=== PATIENT | female | born 1955 | race Caucasian/White ===

== ENCOUNTER 2021-07-23 03:55 | Outpatient (CLI) | payer MEDICARE | END 2021-07-23 03:56 | disposition critical access hospital (66) | LOC: EMS 03:55 | DX: R42 Dizziness and giddiness (principal) | CPT/HCPCS: A0425; A0429 ==

== ENCOUNTER 2021-07-23 04:06 | Observation (INO) | payer MEDICARE, OTHER ==
[2021-07-23] MEDS ORDERED: MECLIZINE 12.5 MG TABLET PO STA (04:32)
--- NOTE | 2021-07-23 04:36 | ED Physician Documentation ---
PD HPI HEENT - Stated complaint Stated Complaint: STROKE LIKE SYMPTOMS - History obtained from History obtained from: Patient, EMS - History of Present Illness Timing - onset: Yesterday (onset about 3 pm while sitting on sofa, felt abrupt dizziness and listing to the side. She felt unable to maintain upright posture/ off balance. Improved after resting with eyes closed. Later got up to go to bathroom and felt off balance. had to help her get to bathroom. No visual change.) Timing - details: Abrupt onset, Now resolved (feeling improved enroute here. Able to talk clearly. No focal weakness. no visual change. Still feeling of nausea and mild vertigo when sits up here in ER. Not much symptoms with side to side head movement.) Location: Other (denies congestion nor tinnitus.). No: Right ear, Left ear, Sinuses Associated symptoms: Other (denies fall/ head injury. She has nausea with movement and sitting up. Did have vomiting with it when worst earlier.). No: Fever, Congestion, Rhinorrhea, Headache Similar symptoms before: Has not had sx before Recently seen: Not recently seen Review of Systems Constitutional: denies: Fever, Chills Eyes: denies: Loss of vision, Decreased vision Ears: denies: Loss of hearing, Tinnitus/ringing Nose: denies: Rhinorrhea / runny nose, Congestion Throat: denies: Sore throat Respiratory: denies: Cough Musculoskeletal: denies: Neck pain, Back pain Neurologic: reports: Generalized weakness (felt like her legs would not hold her when tried walking to bathroom, but symmetrically and she was able to grab hold of her with both arms and converse with him.). denies: Focal weakness, Numbness, Near syncope, Altered mental status, Headache, Head injury PD PAST MEDICAL HISTORY - Past Medical History Cardiovascular: None Respiratory: None Neuro: None Endocrine/Autoimmune: Type 2 diabetes GI: None - Allergies Allergies/Adverse Reactions: Allergies Allergy/AdvReac Type Severity Reaction Status Date / Time No Known Drug Allergies Allergy Verified 07/23/21 04:33 - Social History Does the pt smoke?: No Does the pt drink ETOH?: No Does the pt have substance abuse?: No - Family History Family history: reports: Non contributory. denies: CVA - POLST POLST Status: Full Code PD ED PE NORMAL - Vitals Vital signs reviewed: Yes - General General: Alert and oriented X 3, No acute distress, Well developed/nourished - HEENT HEENT: Atraumatic, PERRL, EOMI (no nystagmus noted), Pharynx benign - Neck Neck: Supple, no meningeal sign, No adenopathy - Cardiac Cardiac: RRR, No murmur - Respiratory Respiratory: Clear bilaterally - Abdomen Abdomen: Soft, Non tender - Derm Derm: Normal color, Warm and dry - Extremities Extremities: No edema, No calf tenderness / cord - Neuro Neuro: Alert and oriented X 3, wildlife officer 2-12 intact, No motor deficit, No sensory deficit, Normal speech, Other (She felt off balance and dizzy with sitting up and trying to stand. ) Eye Opening: Spontaneous Motor: Obeys Commands Verbal: Oriented GCS Score: 15 Results - Vitals Vitals: Vital Signs - 24 hr 07/23/21 07/23/21 07/23/21 04:11 04:32 05:02 Temperature 36 C L Heart Rate 85 81 82 Respiratory 17 18 21 Rate Blood Pressure 172/89 H 176/76 H 156/84 H O2 Saturation 96 96 93 07/23/21 07/23/21 05:30 06:00 Temperature Heart Rate 84 80 Respiratory 22 18 Rate Blood Pressure 156/84 H 158/73 H O2 Saturation 92 95 Oxygen O2 Source Room air - Labs Labs: Laboratory Tests 07/23/21 07/23/21 07/23/21 04:41 04:41 04:50 WBC 6.1 RBC 4.17 L Hgb 12.9 Hct 39.9 MCV 95.7 MCH 30.9 MCHC 32.3 RDW 12.8 Plt Count 208 MPV 9.6 Neut # (Auto) 3.0 Lymph # (Auto) 2.5 Corson # (Auto) 0.5 Eos # (Auto) 0.1 Baso # (Auto) 0.0 Absolute Nucleated RBC 0.00 Nucleated RBC % 0.0 ESR 43 H Sodium Potassium Chloride Carbon Dioxide Anion Gap BUN Creatinine Estimated GFR (MDRD) Glucose Calcium Magnesium Total Bilirubin AST ALT Alkaline Phosphatase Troponin I High Sens Total Protein Albumin Globulin Albumin/Globulin Ratio Lipase Nasal Adenovirus (PCR) NOT DETECTED Nasal B. parapertussis DNA (PCR) NOT DETECTED Nasal Coronavir 229E PCR NOT DETECTED Nasal Coronavir HKU1 PCR NOT DETECTED Nasal Coronavir NL63 PCR NOT DETECTED Nasal Coronavir OC43 PCR NOT DETECTED Nasal Enterovir/Rhinovir PCR NOT DETECTED Nasal Influenza B PCR NOT DETECTED Nasal Influenza A PCR NOT DETECTED Nasal Parainfluen 1 PCR NOT DETECTED Nasal Parainfluen 2 PCR NOT DETECTED Nasal Parainfluen 3 PCR NOT DETECTED Nasal Parainfluen 4 PCR NOT DETECTED Nasal RSV (PCR) NOT DETECTED Nasal B.pertussis DNA PCR NOT DETECTED Nasal C.pneumoniae (PCR) NOT DETECTED Jimmie Human Metapneumo PCR NOT DETECTED Nasal M.pneumoniae (PCR) NOT DETECTED Nasal SARS-CoV-2 (PCR) NOT DETECTED 07/23/21 07/23/21 04:50 04:50 WBC RBC Hgb Hct MCV MCH MCHC RDW Plt Count MPV Neut # (Auto) Lymph # (Auto) Corson # (Auto) Eos # (Auto) Baso # (Auto) Absolute Nucleated RBC Nucleated RBC % ESR Sodium 140 Potassium 3.5 Chloride 101 Carbon Dioxide 27 Anion Gap 12.0 BUN 17 Creatinine 0.8 Estimated GFR (MDRD) 72 L Glucose 159 H Calcium 9.5 Magnesium 1.7 Total Bilirubin 0.5 AST 32 ALT 33 Alkaline Phosphatase 107 Troponin I High Sens 5.8 Total Protein 7.3 Albumin 4.0 Globulin 3.3 Albumin/Globulin Ratio 1.2 Lipase 51 Nasal Adenovirus (PCR) Nasal B. parapertussis DNA (PCR) Nasal Coronavir 229E PCR Nasal Coronavir HKU1 PCR Nasal Coronavir NL63 PCR Nasal Coronavir OC43 PCR Nasal Enterovir/Rhinovir PCR Nasal Influenza B PCR Nasal Influenza A PCR Nasal Parainfluen 1 PCR Nasal Parainfluen 2 PCR Nasal Parainfluen 3 PCR Nasal Parainfluen 4 PCR Nasal RSV (PCR) Nasal B.pertussis DNA PCR Nasal C.pneumoniae (PCR) Jimmie Human Metapneumo PCR Nasal M.pneumoniae (PCR) Nasal SARS-CoV-2 (PCR) - Rads (name of study) head/neck angio Radiology: Prelim report reviewed (no significant stenoses, no bleeding, no masses. ), See rad report PD MEDICAL DECISION MAKING - ED course Complexity details: re-evaluated patient (unclear if peripheral or central vertigo. Initial labs and CT/CT-A are okay. But need MRI for real conclusive testing. Can talk with Hospitalist. ), considered differential (Seems more likely peripheral vertigo but no URI symptoms, etc. No nystagmus in ER to correlate with peripheral cause. COnsider metabolic or central cerebellar process. Not apparently concussive nor infectious. ), d/w patient Departure - Departure Disposition: ED Place in Observation Clinical Impression: Acute vertigo with vomiting and inability to stand, Acute ataxia Condition: Stable Record reviewed to determine appropriate education?: Yes NIHSS - Level of Consciousness Level of consciousness: (0) Alert, Keenly responsive LOC Questions: (0) Answers both Q's correct LOC Commands: (0) Performs both correctly - Gaze Best Gaze: (0) Normal - Visual Visual: (0) No loss - Facial Palsy Facial Palsy: (0) Normal, symmetrical movement - Motor Arms (both separate) Motor Arm (right): (0) No drift Motor Arm (left): (0) No drift - Motor Legs (both separate) Motor Leg (right): (0) No drift Motor Leg (left): (0) No drift - Limb Ataxia Limb Ataxia: (0) Absent - Sensory Sensory: (0) Normal - Best Language Best Language: (0) No aphasia - Dysarthria Dysarthria: (0) Normal - Extinction and Inattention (formally neg Extinction and inattention: (0) No abnormality - Total Score/Results Total Score/Result: 0
[2021-07-23] MEDS ORDERED: ONDANSETRON 4 MG/2 ML VIAL IVP STA (04:38)
[2021-07-23] MEDS ORDERED: diazePAM INJ 5 MG/ML SYRINGE IVP STA (04:40)
[2021-07-23 05:01] LABS: BASOPHILS % (AUTO) 0.5 %; EOSINOPHILS # (AUTO) 0.1 10^3/uL (0.0-0.7); EOSINOPHILS % (AUTO) 1.3 %; HCT - HEMATOCRIT 39.9 % (37.0-47.0); HGB - HEMOGLOBIN 12.9 g/dL (12.0-16.0); LYMPHOCYTES # (AUTO) 2.5 10^3/uL (1.5-3.5); LYMPHOCYTES % (AUTO) 40.8 %; MEAN CORPUSCULAR HEMOGLOBIN 30.9 pg (27.0-31.0); MEAN CORPUSCULAR HGB CONC 32.3 g/dL (32.0-36.0); MEAN CORPUSCULAR VOLUME 95.7 fL (81.0-99.0); MEAN PLATELET VOLUME 9.6 fL (7.9-10.8); MONOCYTES # (AUTO) 0.5 10^3/uL (0.0-1.0); NEUTROPHILS % (AUTO) 48.7 %; PLT - PLATELET COUNT 208 10^3/uL (130-450); RED BLOOD COUNT 4.17 10^6/uL (4.20-5.40); RED CELL DISTRIBUTION WIDTH 12.8 % (12.0-15.0); WHITE BLOOD COUNT 6.1 x10^3/uL (4.8-10.8)
[2021-07-23 05:18] LABS: ALBUMIN/GLOBULIN RATIO 1.2 (1.0-2.2); BILIRUBIN,TOTAL 0.5 mg/dL (0.2-1.0); CALCIUM 9.5 mg/dL (8.5-10.3); CREATININE 0.8 mg/dL (0.4-1.0); MAGNESIUM 1.7 mg/dL (1.7-2.8); POTASSIUM 3.5 mmol/L (3.5-5.0); TOTAL PROTEIN 7.3 g/dL (6.7-8.2)
[2021-07-23] MEDS ORDERED: IOVERSOL 320 100 ML VIAL IVP ONE ×2 (05:18→05:21)
[2021-07-23 05:47] LABS: B. PARAPERTUSSIS- RESP PCR PAN NOT DETECTED; B. PERTUSSIS- RESP PCR PANEL NOT DETECTED; C. PNEUMONIAE- RESP PCR PANEL NOT DETECTED; CORONAVIRUS 229E-RESP PCR NOT DETECTED; CORONAVIRUS HKU1-RESP PCR NOT DETECTED; CORONAVIRUS NL63-RESP PCR NOT DETECTED; CORONAVIRUS OC43-RESP PCR NOT DETECTED; HUMAN METAPNEUMOVIRUS NOT DETECTED; INFLUENZA A- RESP PCR PANEL NOT DETECTED; INFLUENZA B - RESP PCR PANEL NOT DETECTED; M. PNEUMONIAE- RESP PCR PANEL NOT DETECTED; PARAINFLUENZA VIRUS 1 NOT DETECTED; PARAINFLUENZA VIRUS 2 NOT DETECTED; PARAINFLUENZA VIRUS 3 NOT DETECTED; PARAINFLUENZA VIRUS 4 NOT DETECTED; RHINOVIRUS/ENTEROVIRUS NOT DETECTED; RSV- RESP PCR PANEL NOT DETECTED; SARS-CoV-2 -RESP PCR PANEL NOT DETECTED
[2021-07-23] MEDS ORDERED: ACETAMINOPHEN 325 MG TABLET PO PRN (06:40)
[2021-07-23] MEDS ORDERED: SODIUM CHLORIDE FLUSH 0.9% 10 ML SYRINGE IVP PRN (06:40)
[2021-07-23] MEDS ORDERED: ONDANSETRON 4 MG/2 ML VIAL IVP PRN (06:43)
[2021-07-23] MEDS ORDERED: D5NS W/20 MEQ KCL 1,000 ML IV SCH (07:00)
--- NOTE | 2021-07-23 07:16 | CT Report ---
PROCEDURE: ANGIO HEAD W/WO INDICATIONS: L sided facial droop CONTRAST: IV CONTRAST: Optiray 320 ml: 100 PO CONTRAST: *NO PO CONTRAST TECHNIQUE: Precontrast 4.5 mm thick angled axial sections acquired from the foramen magnum to the vertex. Afte r the administration of intravenous contrast, 1 mm thick sections acquired through the [place] of Will is. Postcontrast 4.5 mm thick sections then re-acquired from the foramen magnum to the vertex. 3-di mensional svpesoz-lvtchunym-uksfxmtfdy (MIP) and/or volume rendering reformats were acquired of the c entral intracranial vasculature. For radiation dose reduction, the following was used: automated ex posure control, adjustment of mA and/or kV according to patient size. COMPARISON: FINDINGS: Image quality: Excellent. Anterior circulation: Intracranial internal carotid arteries are normal in size and flow. The flow within the paired anterior cerebral arteries is normal and symmetric. The flow within the middle cer ebral arteries is normal and symmetric. The anterior communicating artery is seen. No aneurysms are seen. Posterior circulation: Visualized portions of the vertebral arteries demonstrate normal caliber, and join to form a normal appearing basilar artery. Flow within the posterior cerebral arteries is norm al and symmetric. No aneurysms are seen. CSF spaces: Ventricles are normal in size and shape. Basal cisterns are patent. No extra-axial flu id collections. Brain: No midline shift. No intracranial bleeds or masses. Parks-white matter interface appears int act. Skull and face: Calvarium and facial bones appear intact, without suspicious lesions. Sinuses: Visualized sinuses are clear. Nonspecific left mastoid opacities. IMPRESSION: 1. Negative CT of the head. 2. Nonspecific left mastoid opacities. Interpretation concurs with preliminary findings Reviewed by: Jerrod Sheffield on 07/23/2021 7:15 AM PDT Approved by: Jerrod Sheffield on 07/23/2021 7:15 AM PDT Station ID: [id number]
--- NOTE | 2021-07-23 07:16 | CT Report ---
PROCEDURE: ANGIO NECK W INDICATIONS: L sided facial droop, L neck pain CONTRAST: IV CONTRAST: Optiray 320 ml: 100 PO CONTRAST: *NO PO CONTRAST TECHNIQUE: After the administration of intravenous contrast, 1.5 mm axial sections acquired from the aortic arch to the [place] of [place]. Coronal 3-D maximum intensity projection (MIP) and/or volume rendering ref ormats were then performed. For radiation dose reduction, the following was used: automated exposur e control, adjustment of mA and/or kV according to patient size. COMPARISON: None. FINDINGS: Image quality: Excellent. Carotid system: The great vessels demonstrate a conventional anatomy as they arise from the aortic a rch. The origins of the common carotid arteries appear patent. The common carotid arteries demonstr ate normal calibers and courses. The bifurcation regions appear normal bilaterally. The internal ca rotid arteries demonstrate normal caliber and course. Posterior circulation: The origins of the vertebral arteries appear patent. The more superior porti ons of the vertebral arteries demonstrate normal course and caliber. They join to form a normal appe aring basilar artery. Soft tissues: Visualized neck soft tissues demonstrate no suspicious abnormalities. The thyroid is normal in size and there are no incidental findings. Bones: No suspicious bony lesions. Visualized cervical spine appears normally aligned. IMPRESSION: Negative CTA neck The estimate of stenosis included in the report of the imaging study was calculated using the NASCET method CLINICAL RECOMMENDATION STATEMENTS: In patients <35 years with an ITN detected on CT, MRI, or extrathyroidal ultrasound, the Committee re commends further evaluation with dedicated thyroid ultrasound if the nodule is "e1 cm and has no susp icious imaging features, and if the patient has normal life expectancy. In patients "e35 years with an ITN detected on CT, MRI, or extrathyroidal ultrasound, the Committee r ecommends further evaluation with dedicated thyroid ultrasound if the nodule is "e1.5 cm and has no s uspicious imaging features, and if the patient has normal life expectancy. (ACR, 2014) Reviewed by: Jerrod Sheffield on 07/23/2021 7:15 AM PDT Approved by: Jerrod Sheffield on 07/23/2021 7:15 AM PDT Station ID: [id number]
--- NOTE | 2021-07-23 08:25 | HISTORY & PHYSICAL EXAMINATION ---
Chief Complaint - Chief Complaint Chief Complaint: ataxia, n/v, stuttering History of Present Illness - Admitted From Admitted From:: [facility] ED - History Obtained From Records Reviewed: yes History obtained from: patient, ED physician - History of Present Illness HPI Comment/Other: Patient is a 66-year-old female who presented to the ED with acute onset of dizziness. This started yesterday afternoon while she was sitting on the couch. She started to tip over but then her symptoms resolved almost as immediately as they had started. Later in the evening while she was trying to go to bed, it felt like the whole room was spinning. She only had relief with closing her eyes. Around 3 AM she woke up drenched in sweat and tachycardic. She checked her blood glucose and it was 179. She could only walk to the bathroom with her 's aid due to dizziness. She became significantly nauseous and vomited while in the bathroom. She was brought to the ED by her . Currently in the hospital room she attempted to adjust the head of the bed to an appropriate angle and experienced dizziness again. She reports a generalized headache and blurry vision. She denies double vision. She denies weakness in any extremities. She denies any previous occurrence of similar symptoms. She also denies chest pain, dyspnea, abdominal pain, fever or chills. Work-up in the ED included a CT, CT angio head and neck which were unremarkable. She was admitted for further work-up to include an MRI of the brain. History - Past Medical History Cardiovascular: reports: High cholesterol Respiratory: reports: None Neuro: reports: None Endocrine/Autoimmune: reports: Type 2 diabetes, HyPOthyroidism GI: reports: None MRSA Hx?: No - Past Surgical History General: reports: Cholecystectomy Ortho: reports: Other (right shoulder surgery) - Family & Social History Family History Comment/Other: Patient's mother had history of valvular heart disease, hypertension and Hypothyroidism. Her brother and sister have hypothyroidism Living arrangement: At home Living Situation: With spouse/s.o. Social History Notes: She does not smoke tobacco products, consume alcohol or use recreational drugs. - POLST Patient has POLST: No POLST Status: Full Code Meds/Allgy - Home Medications Home Medications: Ambulatory Orders Medication Instructions Recorded Confirmed Amox/Clav 875/125 [Augmentin 1 tablet PO Q12H 5 Days #10 tablet 07/23/21 875/125 Tab] Aspirin [Aspirin EC] 81 mg PO DAILY 07/23/21 07/23/21 Calcium Carbonate/Vitamin D3 1 tab PO BID 07/23/21 07/23/21 [Calcium 600 mg-Vit D3 10Mcg Tb] Cholecalciferol (Vitamin D3) 50 mcg PO DAILY 07/23/21 07/23/21 [Vitamin D3] Ciproflox/Dexameth Otic Drops 4 drops OT BID 10 Days #7.5 ml 07/23/21 [Ciprodex Otic Drops] Cyanocobalamin (Vitamin B-12) 2,500 mcg PO DAILY 07/23/21 07/23/21 [Vitamin B-12] Glucosamine HCl/Chondroitin Velasquez 2 cap PO DAILY 07/23/21 07/23/21 [Glucosamine-Chondroitin Cap] Insulin NPH Human [Humulin N] 0 - 190 units SQ QPM 07/23/21 07/23/21 Insulin NPH Human [Humulin N] 70 units SQ DAILY 07/23/21 07/23/21 Levothyroxine Sodium [Synthroid] 75 - 150 mcg PO DAILY 07/23/21 07/23/21 Meclizine [Antivert] 12.5 mg PO Q6H 5 Days #20 tablet 07/23/21 Multivitamin 1 tab PO DAILY 07/23/21 07/23/21 Edmond-3S/Dha/Epa/Fish Oil [Fish 1 cap PO DAILY 07/23/21 07/23/21 Oil 1,200 mg Softgel] Simvastatin [Zocor] 20 mg PO QPM 07/23/21 07/23/21 metFORMIN [Glucophage] 1,000 mg PO BID 07/23/21 07/23/21 - Allergies Allergies/Adverse Reactions: Allergies Allergy/AdvReac Type Severity Reaction Status Date / Time No Known Drug Allergies Allergy Verified 07/23/21 04:33 Review of Systems - Constitutional Constitutional: denies: Fatigue, Fever, Chills - Eyes Eyes: reports: Blurred vision. denies: Pain, Vision loss, Dipolpia - Ears, Nose & Throat Ears, Nose & Throat: reports: Vertigo. denies: Ear pain, Hearing loss, Tinnitus, Sore throat, Hoarseness - Cardiovascular Cariovascular: denies: Irregular heart rate, Palpitations, Chest pain, Edema - Respiratory Respiratory: denies: Cough, SOB at rest, SOB with exertion - Gastrointestinal Gastrointestinal: reports: Nausea, Vomiting. denies: Abdominal pain, Abdominal distention - Genitourinary Genitourinary: denies: Dysuria, Frequency, Urgency, Hematuria - Musculoskeletal Musculoskeletal: denies: Muscle pain, Back pain, Muscle aches - Integumentary Integumentary: denies: Rash, Pruritis - Neurological Neurological: reports: Other (stuttering). denies: Headache - Psychiatric Psychiatric: denies: Depression, Anxiety - Endocrine Endocrine: denies: Polyuria, Polydypsia - Hematologic/Lymphatic Hematologic/Lymphatic: denies: Anemia, Bruising, Petechiae Prior Level of Functionality: Patient is normally independent of activities of daily living Exam - Vital Signs Vital Signs: Vital Signs x48h Temp Pulse Pulse Resp BP BP Pulse Ox 07/23/21 07:31 36 C L 87 17 153/74 H 97 07/23/21 06:30 82 16 171/84 H 94 07/23/21 06:00 80 18 158/73 H 95 07/23/21 05:30 84 22 156/84 H 92 07/23/21 05:02 82 21 156/84 H 93 07/23/21 04:32 81 18 176/76 H 96 07/23/21 04:11 36 C L 85 17 172/89 H 96 - Physical Exam General Appearance: positive: No acute distress, Alert Eyes Bilateral: positive: PERRL, EOMI ENT: positive: No signs of dehydration Neck: positive: No JVD, Trachea midline Respiratory: positive: Chest non-tender, No respiratory distress, Breath sounds nml. negative: Wheezes, Rales, Rhonchi Cardiovascular: positive: Regular rate & rhythm, No murmur Abdomen: positive: Non-tender, Nml bowel sounds, No distention. negative: Tenderness, Guarding, Rebound Back: positive: Nml inspection Skin: positive: No rash, Warm, Dry Extremities: positive: Non-tender, Full ROM, Nml appearance, No pedal edema Neurologic/Psychiatric: positive: Oriented x3, Mood/affect nml, Other (ataxia, stuttering) Conclusion/Plan - Problem List (1) Acute ataxia Conclusion/Plan: Etiology undetermined. Differential diagnosis would include CVA versus BPPV CT brain was unremarkable. MRI of the brain ordered and pending. If positive for a CVA will complete work-up and ask physical and Occupational Therapy to evaluate patient. If negative will consider Eden's maneuver (2) Acute vertigo with vomiting and inability to stand Conclusion/Plan: Determined. We will rule out a CVA. MRI of the brain pending. Will order meclizine as needed. Zofran and Compazine as needed for nausea. We will consider Eden maneuvers (3) Hypothyroidism Conclusion/Plan: Will resume patient's Synthroid once verified (4) Diabetes mellitus Conclusion/Plan: We will hold patient's Metformin. Accu-Cheks before every meal and at bedtime. Sliding scale insulin. Qualifiers: Diabetes mellitus type: type 2 (5) Hypolipidemia Conclusion/Plan: On simvastatin 20 mg p.o. every afternoon - Lab Results Fish Bones: 07/23/21 04:50 07/23/21 04:50 Core Measures - Anticipated LOS I expect patient to be DC'd or transferred within 96 hours.: Yes - DVT/VTE - Prophylaxis VTE/DVT Device ordered at admit?: Yes VTE/DVT Prophylaxis med ordered at admit?: Yes - Stroke - Rehab Assessment Rehab services assessment to be ordered?: Yes - AMI - Statin at Admit Aspirin Prescribed on Admit: Yes
[2021-07-23] MEDS ORDERED: MECLIZINE 12.5 MG TABLET PO PRN (08:34)
[2021-07-23] MEDS ORDERED: SODIUM CHLORIDE FLUSH 0.9% 10 ML SYRINGE IVP SCH (09:00)
--- NOTE | 2021-07-23 11:51 | MRI Report ---
PROCEDURE: Brain W/O INDICATIONS: Stroke-like symptoms TECHNIQUE: Noncontrast axial T1 spin echo, axial T2 fast spin echo, sagittal and axial FLAIR, coronal T2 fast sp in echo, axial gradient echo, axial diffusion and ADC through the brain. COMPARISON: None. FINDINGS: Image quality: Excellent. CSF Spaces: Basal cisterns are patent. No extra-axial fluid collections. Ventricles are normal in size and shape. Brain: Mild chronic microvascular ischemic changes. No intracranial masses or hemorrhage. Parks/whit e matter interface is normal. Brainstem appears normal. Diffusion-weighted images demonstrate no ac aneesh ischemic insult. No chronic ischemic insults. Normal intravascular flow voids are present. Skull and face: Calvarium has normal marrow signal. Orbits appear normal. Sinuses: Diffuse opacification of the left mastoid air cells. Right mastoid air cells are clear. No p aranasal sinus opacification demonstrated. IMPRESSION: No acute intracranial normality. Mild chronic vascular ischemic changes. Large left mastoid air cell effusion. Reviewed by: Jorge Tee MD on 07/23/2021 11:50 AM PDT Approved by: Jorge Tee MD on 07/23/2021 11:50 AM PDT Station ID: [id number]
--- NOTE | 2021-07-23 12:57 | PHARMACY PROGRESS NOTE ---
- Best Possible Medication History Admit Date and Time: 07/23/21 0640 Processed by: Pharmacy Medication History completed: Yes Patient Interview: Completed Secondary Source(s): Prescription bottles, Pharmacy records, Insurance records Most medications were confirmed based on patient interview and medication bottles brought in by the patient. The only medication that was not brought in was the patient's insulin. Patient reports using Humulin N 70 units in the morning and up to 190 units in the evening. She says she does not use her insulin every evening, and she adjusts her dose based on her blood sugar and how much she ate during the day. She is new to the area and recently transferred her prescriptions. [facility] reported the patient's last Humulin N dose they had on record (from October) was 70 units AM and 160 units PM. I also attempted to call the patient's checker product design in [place] who wrote the insulin prescription (per [facility] pharmacist) but I have not heard back from their office yet. As the person ultimately responsible for medication therapy, providers are able to order a medication from an existing home medication list in [facility] via the "Reconcile Routine" prior to Confirmation of that medication by direct support worker. Such practice is discouraged except when the physician, in their clinical judgment, deems that a medical need exists for a medication without regard to previous use.
--- NOTE | 2021-07-23 15:15 | DISCHARGE SUMMARY ---
Discharge Summary Admit Date: 07/23/21 Discharge Date: 07/23/21 Discharging Provider: Afshin Solorzano [facility] Code Status: Attempt Resuscitation Condition at Discharge: Stable Discharge Disposition: 01 Home, Self Care - DIAGNOSES Admission Diagnoses: Otitis Media Acute ataxia Acute vertigo with vomiting and improved ability to stand Hypothyroidism Diabetes mellitus Hyperlipidemia Discharge Diagnoses with Status of Each Condition: Otitis Media: Patient prescribed Augment po bid X 5 days and Ciprodex otic drops Acute ataxia: Improved. Acute vertigo with vomiting and improved ability to stand: Improved. Meclizine ordered Hypothyroidism: Chronic. Stable. Continue home medications Diabetes mellitus: Chronic. Stable. Continue home medications Hyperlipidemia: Chronic. Stable. Continue home medications - HOSPITAL COURSE Hospital Course: Patient was treated with meclizine, Zofran and Valium during her hospital stay. CT of the brain, CT angio head and neck were done and were unremarkable. She underwent an MRI of the brain which was negative for any acute intracranial abnormality. It also showed mild chronic vascular ischemic changes. However it showed a large left mastoid air cell effusion. The patient denied any ear pain or any recent infection involving ear nose or throat. Examination of the left ear showed a loss of cone of light. She was seen by physical therapy and while ambulating around the room and doing activities she did not have any symptoms of nausea vomiting dizziness or ataxia. However after laying back in bed turning her head to the left resulted in significant nausea and dizziness. She was prescribed Augmentin 875/125 mg tablets to take 1 tablet p.o. twice daily x5 days. She was also prescribed Ciprodex otic drop to apply 4 drops in the affected ear twice daily for 10 days. She was prescribed meclizine to take 1 tablet every 6 hours as needed for vertigo. She was counseled that if her symptoms persist beyond 5 days she is to seek medical attention again. She would likely need to follow-up with an ground nuclear weapons assembly officer. She was discharged in stable condition. - ALLERGIES Allergies/Adverse Reactions: Allergies Allergy/AdvReac Type Severity Reaction Status Date / Time No Known Drug Allergies Allergy Verified 07/23/21 04:33 - MEDICATIONS Home Medications: Ambulatory Orders Medication Instructions Recorded Confirmed Amox/Clav 875/125 [Augmentin 1 tablet PO Q12H 5 Days #10 tablet 07/23/21 875/125 Tab] Aspirin [Aspirin EC] 81 mg PO DAILY 07/23/21 07/23/21 Calcium Carbonate/Vitamin D3 1 tab PO BID 07/23/21 07/23/21 [Calcium 600 mg-Vit D3 10Mcg Tb] Cholecalciferol (Vitamin D3) 50 mcg PO DAILY 07/23/21 07/23/21 [Vitamin D3] Ciproflox/Dexameth Otic Drops 4 drops OT BID 10 Days #7.5 ml 07/23/21 [Ciprodex Otic Drops] Cyanocobalamin (Vitamin B-12) 2,500 mcg PO DAILY 07/23/21 07/23/21 [Vitamin B-12] Glucosamine HCl/Chondroitin Velasquez 2 cap PO DAILY 07/23/21 07/23/21 [Glucosamine-Chondroitin Cap] Insulin NPH Human [Humulin N] 0 - 190 units SQ QPM 07/23/21 07/23/21 Insulin NPH Human [Humulin N] 70 units SQ DAILY 07/23/21 07/23/21 Levothyroxine Sodium [Synthroid] 75 - 150 mcg PO DAILY 07/23/21 07/23/21 Meclizine [Antivert] 12.5 mg PO Q6H 5 Days #20 tablet 07/23/21 Multivitamin 1 tab PO DAILY 07/23/21 07/23/21 [place]-3S/Dha/Epa/Fish Oil [Fish 1 cap PO DAILY 07/23/21 07/23/21 Oil 1,200 mg Softgel] Simvastatin [Zocor] 20 mg PO QPM 07/23/21 07/23/21 metFORMIN [Glucophage] 1,000 mg PO BID 07/23/21 07/23/21 - PHYSICAL EXAM AT DISCHARGE General Appearance: positive: No acute distress, Alert Eyes Bilateral: positive: PERRL, EOMI ENT: positive: Other (No cone of light in the left ear.) Neck: positive: Thyroid nml, No JVD, Trachea midline Respiratory: positive: Chest non-tender, No respiratory distress, Breath sounds nml. negative: Wheezes, Rales, Rhonchi Cardiovascular: positive: Regular rate & rhythm, No murmur Abdomen: positive: Non-tender, No organomegaly, Nml bowel sounds, No distention Back: positive: Nml inspection Skin: positive: Color nml, No rash, Warm, Dry Extremities: positive: Non-tender, Full ROM, Nml appearance, No pedal edema Neurologic/Psychiatric: positive: Oriented x3, Mood/affect nml - LABS Result Diagrams: 07/23/21 04:50 07/23/21 04:50 - TIME SPENT Time Spent in Discharge (Minutes): 25
--- NOTE | 2021-07-23 15:22 | Discharge Plan ---
Discharge Plan Problem Reviewed?: Yes Disposition: Home, Self Care Condition: Stable Prescriptions: Meclizine [Antivert] 12.5 mg PO Q6H 5 Days #20 tablet Amox/Clav 875/125 [Augmentin 875/125 Tab] 1 tablet PO Q12H 5 Days #10 tablet Ciproflox/Dexameth Otic Drops [Ciprodex Otic Drops] 4 drops OT BID 10 Days #7.5 ml Diet: Diabetic Activity Restrictions: Activity as Tolerated Health Concerns: Patient with complaint of sudden onset of dizziness/vertigo. Is associated with nausea and vomiting as well as difficulty walking. ED included a CT, CT angio head and neck which were unremarkable. You also had An MRI of the brain done which was negative for any infarct. However it showed fluid collection in the left mastoid. Usually this finding is associated with an ear infection. As a result you are being prescribed Augmentin 875/125 mg tablets to take 1 tablet p.o. twice daily x5 days. You were also prescribed Ciprodex which is an eardrop antibiotic to apply in the ear 4 drops twice a day for 10 days. You have also been prescribed meclizine to take 1 tablet every 6 hours as needed for vertigo with dizziness. If your symptoms persist beyond 5 days you will need to seek further medical attention. If this is the case you would likely need to see an personnel research psychologist The above was explained to you, you expressed understanding and agreeable with the plan. No Smoking: If you smoke, Please STOP! Call for help.
[2021-07-23 15:43] VITALS: BP 141/64
== END 2021-07-23 17:10 | disposition home or self-care (01) ==
LOC: ED 04:06 → MS2 06:40
PROVIDERS: ADMIT Internal Medicine; ATTEND Internal Medicine
DX: H65.92 Unspecified nonsuppurative otitis media, left ear (principal); R42 Dizziness and giddiness; E11.9 Type 2 diabetes mellitus without complications; E03.9 Hypothyroidism, unspecified; E78.5 Hyperlipidemia, unspecified; R11.2 Nausea with vomiting, unspecified; Z79.84 Long term (current) use of oral hypoglycemic drugs; Z20.822 Contact with and (suspected) exposure to COVID-19
CPT/HCPCS: 36415; 70496; 70498; 70551; 80053; 83690; 83735; 84484; 85025; 85651; 87631; 93005; 96374; 96375; 97161; 99284; 99285; A9270; G0378; Q9967; 0202U

== ENCOUNTER 2023-02-02 21:51 | Emergency (ER) | payer MEDICARE ==
--- NOTE | 2023-02-02 23:17 | ED Physician Documentation ---
History of Present Illness - Stated complaint Stated Complaint: TOOK TOO MUCH INSULIN - Chief complaint Chief Complaint: General - History obtained from History obtained from: Patient, Family () - Additonal information Additional information: 67yF with pmh dm p/w accidental medication error. patient mistakenly took regular insulin 50 U instead of her usual lantus 50 U nighttime dose at 8:30pm. She is asymptomatic, states she just wanted to make sure she wasn't hypoglycemic. PD PAST MEDICAL HISTORY - Past Medical History Cardiovascular: High cholesterol Respiratory: None Neuro: None Endocrine/Autoimmune: Type 2 diabetes, HyPOthyroidism GI: None : None Psych: None Musculoskeletal: None Derm: None - Past Surgical History General: Cholecystectomy Ortho: Other - Present Medications Home Medications: Ambulatory Orders Medication Instructions Recorded Confirmed Aspirin [Aspirin EC] 81 mg PO DAILY 07/23/21 02/02/23 Calcium Carbonate/Vitamin D3 1 tab PO BID 07/23/21 02/02/23 [Calcium 600 mg-Vit D3 10Mcg Tb] Cholecalciferol (Vitamin D3) 50 mcg PO DAILY 07/23/21 02/02/23 [Vitamin D3] Ciproflox/Dexameth Otic Drops 4 drops OT BID 10 Days #7.5 ml 07/23/21 02/02/23 [Ciprodex Otic Drops] Cyanocobalamin (Vitamin B-12) 2,500 mcg PO DAILY 07/23/21 02/02/23 [Vitamin B-12] Glucosamine HCl/Chondroitin Velasquez 2 cap PO DAILY 07/23/21 02/02/23 [Glucosamine-Chondroitin Cap] Insulin NPH Human [Humulin N] 0 - 190 units SQ QPM 07/23/21 02/02/23 Insulin NPH Human [Humulin N] 70 units SQ DAILY 07/23/21 02/02/23 Levothyroxine Sodium [Synthroid] 75 - 150 mcg PO DAILY 07/23/21 02/02/23 Multivitamin 1 tab PO DAILY 07/23/21 02/02/23 [place]-3S/Dha/Epa/Fish Oil [Fish 1 cap PO DAILY 07/23/21 02/02/23 Oil 1,200 mg Softgel] Simvastatin [Zocor] 20 mg PO QPM 07/23/21 02/02/23 metFORMIN [Glucophage] 1,000 mg PO BID 09/27/21 04/09/23 - Allergies Allergies/Adverse Reactions: Allergies Allergy/AdvReac Type Severity Reaction Status Date / Time No Known Drug Allergies Allergy Verified 07/23/21 04:33 - Social History Does the pt smoke?: No Smoking Status: Never smoker Does the pt drink ETOH?: No Does the pt have substance abuse?: No - Immunizations Immunizations are current?: Yes - POLST Patient has POLST: No POLST Status: Full Code PD ED PE NORMAL - Vitals Vital signs reviewed: Yes - General General: Alert and oriented X 3, No acute distress, Well developed/nourished - HEENT HEENT: Atraumatic, PERRL, EOMI - Neck Neck: Supple, no meningeal sign - Derm Derm: Normal color, Warm and dry Results - Vitals Vitals: Vital Signs - 24 hr 02/02/23 22:00 Temperature 36.3 C L Heart Rate 92 Respiratory 18 Rate Blood Pressure 172/80 H O2 Saturation 98 Oxygen O2 Source Room air - Labs Labs: Laboratory Tests 02/02/23 22:02 POC Whole Bld Glucose 130 H PD Medical Decision Making - ED course ED course: 67-year-old woman with history of diabetes presents after accidentally taking 50 units of regular insulin instead of Lantus.This was at 8:30 PM and she has been tracking her sugars throughout the night since that time. Her most recent was 117 at 11pm. Patient normally takes 20 U regular insulin at mealtimes and has blood glucose in high 100s after meals. In light of this, I advised her to eat a healthy meal high in complex carbohydrates and fat when she gets home. We agreed on a quesadilla with lots of avocado. Return precautions provided. Plan to f/u outpatient with her opticianry teacher. Departure - Departure Disposition: 01 Home, Self Care Clinical Impression: Medication administered in error Condition: Good Instructions: Insulin Types, Diabetes Healthy Meals Comments: You were seen in the emergency department for monitoring after taking 50 units of regular insulin instead of your Lantus. Please eat a healthy meal when you get home with complex carbohydrates and fat. You can resume your normal insulin regimen in the morning. Please follow-up with your opticianry teacher. Return to the emergency department for new or worsening symptoms or other concerns.
[2023-02-02 23:25] VITALS: BP 181/62
== END 2023-02-02 23:25 | disposition home or self-care (01) ==
LOC: ED 21:51
DX: Z03.6 Encounter for observation for suspected toxic effect from ingested substance ruled out (principal); E11.9 Type 2 diabetes mellitus without complications; Z79.4 Long term (current) use of insulin
CPT/HCPCS: 99281; 99282